=== PATIENT | male | born 1990 | race Caucasian/White ===

== ENCOUNTER 2021-06-04 00:49 | Emergency (ER) | payer BC, OTHER ==
[2021-06-04] MEDS ORDERED: Morphine 4 MG/ML VIAL ONE (01:28)
[2021-06-04] MEDS ORDERED: Ondansetron PF 4 MG/2 ML Vial ONE (01:28)
[2021-06-04] MEDS ORDERED: Lorazepam 1 MG TAB ONE (01:56)
[2021-06-04] MEDS ORDERED: Lidocaine 1% (PF) 30 ML VIAL ONE (02:37)
[2021-06-04] MEDS ORDERED: Iopamidol-370 76% 500 ML 1 ML ONE (10:12)
== END 2021-06-04 04:31 | disposition home or self-care (01) ==
LOC: ERS 00:49
DX: S62.633A Displaced fracture of distal phalanx of left middle finger, initial encounter for closed fracture (principal); F17.210 Nicotine dependence, cigarettes, uncomplicated; Z79.899 Other long term (current) drug therapy; V89.2XXA Person injured in unspecified motor-vehicle accident, traffic, initial encounter
CPT/HCPCS: 26725; 71045; 74177; 96374; 96375; J2001; J2270; J2405; Q9967